=== PATIENT | female | born 1965 ===

== ENCOUNTER 2023-04-28 10:02 | Outpatient (CLI) | payer OTHER | END 2023-04-28 10:04 | disposition home or self-care (01) | LOC: SONOGRAMA 10:02 | PROVIDERS: ATTEND Pathology Anatomic Pathology & Clinical Pathology | DX: D34 Benign neoplasm of thyroid gland (principal); D44.0 Neoplasm of uncertain behavior of thyroid gland; E07.89 Other specified disorders of thyroid; E04.2 Nontoxic multinodular goiter ==